=== PATIENT | female | born 1960 | race Caucasian/White ===

== ENCOUNTER 2023-11-15 06:04 | Inpatient (IN) | payer OTHER ==
[2023-11-15 06:26] LABS: BASOPHILS ABSOLUTE AUTO 0.03 K/uL (0.00-0.10); BASOPHILS PERCENT AUTO 0.5 % (0.1-1.3); EOSINOPHILS PERCENT AUTO 3.7 % (0.0-5.4); HEMOGLOBIN 12.8 g/dL (11.2-15.5); IMMATURE GRAN PERCENT AUTO 0.2 % (0.0-0.7); LYMPHOCYTES ABSOLUTE AUTO 2.54 K/uL (0.8-3.3); LYMPHOCYTES PERCENT AUTO 46.5 % (11.4-47.7); MEAN CORPUSCULAR HEMOGLOBIN 29.6 pg (31.6-35.5); MEAN CORPUSCULAR HGB CONC 33.7 g/dL (31.6-35.5); MEAN CORPUSCULAR VOLUME 87.8 fL (81.4-99.0); MONOCYTES ABSOLUTE AUTO 0.36 K/uL (0.20-0.90); MONOCYTES PERCENT AUTO 6.6 % (3.3-12.6); NEUTROPHILS ABSOLUTE AUTO 2.32 K/uL (1.0-7.6); NEUTROPHILS PERCENT AUTO 42.5 % (40.0-78.1); PLATELET COUNT,PLT 222 K/uL (130-375); RED BLOOD CELL COUNT 4.33 M/uL (3.77-5.24); WHITE BLOOD CELL COUNT,WBC 5.5 K/uL (3.2-11.0)
[2023-11-15] MEDS: Nozin Nasal Sanitizer NASBOTH ONE (06:28)
[2023-11-15 06:29] LABS: IMMATURE GRAN ABSOLUTE AUTO 0.01 K/uL (0.00-0.23)
[2023-11-15 06:47] LABS: ALANINE AMINOTRANSFERASE,ALT 67 U/L (12-78); ALBUMIN 3.7 g/dL (3.4-5.0); ALKALINE PHOSPHATASE 116 U/L (46-116); ANION GAP 8.5 mmol/L (5.0-14.0); ASPARTATE AMNIOTRANSFERASE,AST 37 U/L (15-37); BILIRUBIN TOTAL 0.4 mg/dL (0.2-1.0); BLOOD UREA NITROGEN,BUN 21 mg/dL (7-18); CALCIUM 8.6 mg/dL (8.5-10.1); CARBON DIOXIDE,CO2 28 mmol/L (21-32); CHLORIDE,CL 105 mmol/L (100-108); EST CRCL DRUG DOSING (CG) 44.58 mL/min; ESTIMATED GFR 64 mL/min (>60); GLUCOSE RANDOM 84 mg/dL (74-106); POTASSIUM,K 3.9 mmol/L (3.6-5.2); PROTEIN TOTAL,TP 7.5 g/dL (6.4-8.2); SODIUM,NA 141 mmol/L (140-148)
[2023-11-15] MEDS ORDERED: Bupivacaine 0.5% 50 ML MDV ONE (06:47)
[2023-11-15] MEDS: Lactated Ringers 1,000 ML IV SCH (06:49)
[2023-11-15] MEDS ORDERED: Midazolam 1 MG/ML 2 ML SDV ONE (07:27)
[2023-11-15] MEDS ORDERED: fentaNYL 100 MCG/2 ML SDV ONE ×2 (07:27→10:49)
[2023-11-15] MEDS ORDERED: Propofol 200 MG/20 ML SDV ONE ×4 (07:27→10:25)
[2023-11-15] MEDS: ceFAZolin 2 GM in Premix Bag 1 BAG IV ONE (07:39)
[2023-11-15] MEDS ORDERED: oxyCODONE 5 MG Tab PO PRN (07:50)
[2023-11-15] MEDS ORDERED: Triamcinolone Acetonide 0.1% Crm 15 GM Tube TOP PRN (07:52)
[2023-11-15] MEDS: Tranexamic Acid 980 MG in Sodium Chloride 0.9% 50 ML IV ONE (08:35)
[2023-11-15] MEDS ORDERED: Lactated Ringers 1,000 ML ONE (08:39)
[2023-11-15] MEDS ORDERED: Ondansetron 4 MG/2 ML SDV ONE (10:09)
[2023-11-15] MEDS: Ondansetron 4 MG/2 ML SDV IVPUSH PRN (12:34)
[2023-11-15] MEDS: Acetaminophen 325 MG Tab PO SCH (12:39)
[2023-11-15] MEDS: Ketorolac 15 MG/ML SDV IVPUSH PRN (13:49)
[2023-11-15] MEDS: ceFAZolin 2 GM in Premix Bag 1 BAG IV SCH (15:33)
[2023-11-15] MEDS: Rosuvastatin 10 MG Tab PO SCH (15:42)
[2023-11-15] MEDS: oxyCODONE 5 MG Tab PO PRN (17:28)
[2023-11-15] MEDS: Sodium Chloride 0.9% 1,000 ML IV SCH (20:19)
[2023-11-15] MEDS: Nozin Nasal Sanitizer NASBOTH SCH (21:30)
[2023-11-16 05:30] LABS: HEMATOCRIT 28.6 % (34.3-46.0); HEMOGLOBIN 9.6 g/dL (11.2-15.5); MEAN CORPUSCULAR HEMOGLOBIN 29.8 pg (31.6-35.5); MEAN CORPUSCULAR HGB CONC 33.6 g/dL (31.6-35.5); MEAN CORPUSCULAR VOLUME 88.8 fL (81.4-99.0); RED BLOOD CELL COUNT 3.22 M/uL (3.77-5.24); WHITE BLOOD CELL COUNT,WBC 6.7 K/uL (3.2-11.0)
[2023-11-16] MEDS: Aspirin 325 MG Tab.EC PO SCH (08:27)
[2023-11-16] MEDS: Multivitamins with Iron/Calcium/Folic Acid/Minerals Tab PO SCH (08:27)
[2023-11-16] MEDS: Acetaminophen/HYDROcodone 325-5 MG Tab PO PRN (17:31)
[2023-11-16] MEDS: Docusate Sodium 100 MG Cap PO PRN (20:52)
== END 2023-11-17 16:20 | disposition home or self-care (01) | DRG 470 ==
LOC: JP.SDS 06:04 → JP.MS 12:23 → JP.SDS 11-16 15:55
PROVIDERS: ADMIT Specialist; ATTEND Specialist
PROC: 0SR90JA Replacement of Right Hip Joint with Synthetic Substitute, Uncemented, Open Approach (ICD-10-PCS; principal; 2023-11-15 07:30)
DX: M16.11 Unilateral primary osteoarthritis, right hip (principal); E78.5 Hyperlipidemia, unspecified; R42 Dizziness and giddiness
CPT/HCPCS: 01214-QZ; 36415; 72170; 72170-26; 80053; 85025; 85027; 97110-GP; 97116-GP; 97162-GP; 97165-GO; 97530-GP; 97535-GO; A9270-GY; C1713; C1776; J0665; J0690; J1885; J2250; J2405; J2704; J3010; J3490; J7030; J7120

== ENCOUNTER 2023-12-27 08:35 | Inpatient (IN) | payer OTHER ==
[~2023-12-27 08:35] MED LIST: Bupivacaine 0.5% 50 ML MDV ONE; Midazolam 1 MG/ML 2 ML SDV ONE; Propofol 200 MG/20 ML SDV ONE; fentaNYL 100 MCG/2 ML SDV ONE
[2023-12-27 09:05] LABS: HEMATOCRIT 34.5 % (34.3-46.0); HEMOGLOBIN 11.7 g/dL (11.2-15.5); MEAN CORPUSCULAR HEMOGLOBIN 28.5 pg (31.6-35.5); MEAN CORPUSCULAR HGB CONC 33.9 g/dL (31.6-35.5); MEAN CORPUSCULAR VOLUME 83.9 fL (81.4-99.0); RED BLOOD CELL COUNT 4.11 M/uL (3.77-5.24); WHITE BLOOD CELL COUNT,WBC 4.7 K/uL (3.2-11.0)
[2023-12-27 09:26] LABS: ALANINE AMINOTRANSFERASE,ALT 38 U/L (12-78); ALBUMIN 3.6 g/dL (3.4-5.0); ALKALINE PHOSPHATASE 129 U/L (46-116); ASPARTATE AMNIOTRANSFERASE,AST 31 U/L (15-37); BILIRUBIN TOTAL 0.4 mg/dL (0.2-1.0); BLOOD UREA NITROGEN,BUN 21 mg/dL (7-18); CALCIUM 9.5 mg/dL (8.5-10.1); CARBON DIOXIDE,CO2 27 mmol/L (21-32); CHLORIDE,CL 105 mmol/L (100-108); CREATININE 0.9 mg/dL (0.6-1.0); EST CRCL DRUG DOSING (CG) 49.53 mL/min; ESTIMATED GFR 73 mL/min (>60); GLUCOSE RANDOM 85 mg/dL (74-106); POTASSIUM,K 3.9 mmol/L (3.6-5.2); PROTEIN TOTAL,TP 7.4 g/dL (6.4-8.2); SODIUM,NA 143 mmol/L (140-148)
[2023-12-27] MEDS: Nozin Nasal Sanitizer NASBOTH SCH ×2 (09:42→22:02)
[2023-12-27] MEDS: Lactated Ringers 1,000 ML IV SCH (09:42)
[2023-12-27] MEDS: ceFAZolin 2 GM in Premix Bag 1 BAG IV ONE (10:40)
[2023-12-27] MEDS ORDERED: Ondansetron 4 MG/2 ML SDV IVPUSH PRN (10:47)
[2023-12-27] MEDS ORDERED: oxyCODONE 5 MG Tab PO PRN ×2 (10:50)
[2023-12-27] MEDS ORDERED: Lactated Ringers 1,000 ML ONE (11:01)
[2023-12-27] MEDS ORDERED: Ketamine 500 MG/5 ML MDV ONE (11:02)
[2023-12-27] MEDS ORDERED: Propofol 200 MG/20 ML SDV ONE (11:10)
[2023-12-27] MEDS ORDERED: ePHEDrine 50 MG/ML SDV ONE (11:21)
[2023-12-27] MEDS ORDERED: Phenylephrine 1% 10 MG/ML SDV ONE (11:25)
[2023-12-27] MEDS ORDERED: Sodium Chloride 0.9% 10 ML ONE (11:25)
[2023-12-27] MEDS: Sodium Chloride 0.9% 1,000 ML IV SCH (13:58)
[2023-12-27] MEDS: Acetaminophen/HYDROcodone 325-5 MG Tab PO PRN (14:09)
[2023-12-27] MEDS: Ketorolac 15 MG/ML SDV IVPUSH PRN (14:21)
[2023-12-27] MEDS: Acetaminophen 325 MG Tab PO SCH (16:13)
[2023-12-27] MEDS: ceFAZolin 2 GM in Premix Bag 1 BAG IV SCH (18:19)
[2023-12-27] MEDS: Cyclobenzaprine 10 MG Tab PO PRN (22:13)
[2023-12-28 05:05] LABS: HEMATOCRIT 29.1 % (34.3-46.0); HEMOGLOBIN 9.6 g/dL (11.2-15.5); MEAN CORPUSCULAR HEMOGLOBIN 28.2 pg (31.6-35.5); MEAN CORPUSCULAR VOLUME 85.6 fL (81.4-99.0); RED BLOOD CELL COUNT 3.4 M/uL (3.77-5.24); WHITE BLOOD CELL COUNT,WBC 6.6 K/uL (3.2-11.0)
[2023-12-28] MEDS: Aspirin 325 MG Tab.EC PO SCH (08:18)
[2023-12-28] MEDS: Rosuvastatin 10 MG Tab PO SCH (08:18)
[2023-12-28] MEDS ORDERED: Aspirin 325 MG Tab.EC PO SCH (09:00)
[2023-12-28] MEDS: Acetaminophen/HYDROcodone 325-5 MG Tab PO PRN (15:45)
[2023-12-29] MEDS: Docusate Sodium 100 MG Cap PO PRN (16:00)
[2023-12-29] MEDS ORDERED: Magnesium Hydroxide 400 MG/5 ML Susp 30 ML Cup PO PRN (18:07)
[2023-12-30] MEDS: Polyethylene Glycol 3350 Powder 17 GM Packet PO PRN (08:38)
== END 2023-12-30 15:50 | disposition home or self-care (01) | DRG 481 ==
LOC: JP.SDS 08:35 → JP.MS 10:47 → JP.SDS 12-28 15:00 → JP.MS 12-28 15:00
PROVIDERS: ADMIT Physician Assistant; ATTEND Specialist
PROC: 0QS604Z Reposition Right Upper Femur with Internal Fixation Device, Open Approach (ICD-10-PCS; principal; 2023-12-27 09:30)
DX: S72.111A Displaced fracture of greater trochanter of right femur, initial encounter for closed fracture (principal); M97.01XA Periprosthetic fracture around internal prosthetic right hip joint, initial encounter; K21.9 Gastro-esophageal reflux disease without esophagitis; X58.XXXA Exposure to other specified factors, initial encounter
CPT/HCPCS: 01230-QZ; 36415; 72170; 72170-26; 76881-26-RT; 76881-RT; 80053; 85027; 97110-GP; 97116-GP; 97140-GP; 97161-GP; 97165-GO; 97530-GP; 97535-GO; A9270-GY; C1713; J0665; J0690; J1885; J2250; J2371; J2704; J3010; J3490; J7030; J7120